=== PATIENT | male | born 1965 | race Caucasian/White ===

== ENCOUNTER 2019-09-10 10:47 | Outpatient (CLI) | payer OTHER ==
[2019-09-10 11:19] LABS: INTERNATIONAL NORMALIZED RATIO 1.67 (0.93-1.1); PROTHROMBIN TIME 17.2 Seconds (9.6-11.5)
== END 2019-09-10 23:59 | disposition home or self-care (01) ==
LOC: LAB 10:47
PROVIDERS: ATTEND Family Medicine
DX: I26.99 Other pulmonary embolism without acute cor pulmonale (principal)
CPT/HCPCS: 36415; 85610